=== PATIENT | female | born 1950 | race Caucasian/White ===

== ENCOUNTER → 2024-06-12 08:33 | Outpatient (REF) | payer MEDICARE, OTHER, SELFPAY | LOC: WDC 08:33 | PROVIDERS: ATTENDING PHYSICIAN Family Medicine | DX: Z78.0 Asymptomatic menopausal state (principal); Z12.31 Encounter for screening mammogram for malignant neoplasm of breast | CPT/HCPCS: 77063; 77067; 77080 ==